=== PATIENT | female | born 1950 | race Caucasian/White ===

== ENCOUNTER 2020-04-02 05:38 | Day surgery (SDC) | payer OTHER ==
[2020-03-30 11:39] LABS: COVID AG,FIA SOURCE NASOPHARYNGEAL
[~2020-04-02] VITALS: Ht 154.9 cm; Wt 68.6 kg
[2020-04-02] MEDS ORDERED: LIDOCAINE 2% 30 ML JELLY TP ONE (05:39)
[2020-04-02] MEDS ORDERED: ALBUTEROL SULFATE 2.5 MG/0.5 ML NEB SOLUTION NEB ONE (05:39)
[2020-04-02] MEDS ORDERED: LIDOCAINE 4% 50 ML SOLUTION TP ONE (05:39)
[2020-04-02] MEDS ORDERED: BENZOCAINE 20% 50 MCG/SPRAY 57 GM TP ONE (05:39)
[2020-04-02] MEDS ORDERED: SODIUM CHLORIDE 0.9% 1,000 ML IV ONE (06:00)
[2020-04-02] MEDS ORDERED: SODIUM CHLORIDE 0.9% 1,000 ML ONE (06:20)
[2020-04-02] MEDS ORDERED: FAMO20 PO (07:30)
[2020-04-02] MEDS ORDERED: AMLO2.5T96 PO (07:30)
[2020-04-02] MEDS ORDERED: TRAZ-252 PO (07:30)
[2020-04-02] MEDS ORDERED: A20IH1 NEB (07:30)
[2020-04-02] MEDS ORDERED: TERI2.4P SQ (07:30)
[2020-04-02] MEDS ORDERED: CITA10TA99 PO (07:30)
[2020-04-02] MEDS ORDERED: FLUT16H NASAL (07:30)
[2020-04-02] MEDS ORDERED: TRAM50TA4 PO (07:30)
[2020-04-02] MEDS ORDERED: GABA-1216 PO (07:30)
[2020-04-02] MEDS ORDERED: FEXO180T94 PO (07:30)
[2020-04-02] MEDS ORDERED: HYDR-4400 PO (07:30)
[2020-04-02] MEDS ORDERED: ATOR10TA84 PO (07:30)
[2020-04-02] MEDS ORDERED: MONT-35 PO (07:30)
[2020-04-02] MEDS ORDERED: MIDAZOLAM HCL 2 MG/2 ML VIAL ONE (08:08)
[2020-04-02] MEDS ORDERED: FentaNYL CITRATE-PF 100 MCG/2 ML VIAL ONE (08:08)
[2020-04-02] MEDS ORDERED: MethylPREDNISolone SOD SUCC 125 MG/2 ML VIAL IVP ONE (08:45)
[2020-04-02] MEDS ORDERED: MethylPREDNISolone SOD SUCC 125 MG/2 ML VIAL ONE (08:53)
[2020-04-02] MEDS ORDERED: OXYGEN THERAPY IH SCH (20:00)
== END 2020-04-02 10:10 | disposition home or self-care (01) ==
LOC: SURGERY 05:38
PROVIDERS: ATTEND Internal Medicine Critical Care Medicine
DX: J38.4 Edema of larynx (principal); B37.0 Candidal stomatitis; Z20.828 Contact with and (suspected) exposure to other viral communicable diseases; Z88.1 Allergy status to other antibiotic agents; Z91.040 Latex allergy status
CPT/HCPCS: 31623; 31624; 71045; 87015; 87070; 87101; 87205; 87206; 87220; 87426; 88108; 88312; C9803; J2250; J2930; J3010; J7030; J7613; Z7610